=== PATIENT | male | born 1980 | race Hispanic/Latino ===

== ENCOUNTER 2020-10-27 12:42 | Emergency (ER) | payer OTHER ==
[~2020-10-27] VITALS: Ht 185.4 cm; Wt 104.3 kg
[2020-10-27] MEDS ORDERED: CASIRIVIMAB/IMDEVIMAB 10 ML in SODIUM CHLORIDE 0.9% 100 ML IV ONE (13:15)
[2020-10-27 15:26] VITALS: BP 132/61
== END 2020-10-27 14:35 | disposition home or self-care (01) ==
LOC: ER 13:08
DX: R05 Cough (principal); R53.81 Other malaise; U07.1 COVID-19; R53.1 Weakness; R51.9 Headache, unspecified; K21.9 Gastro-esophageal reflux disease without esophagitis
CPT/HCPCS: 99282